=== PATIENT | male | born 1950 | race Caucasian/White ===

== ENCOUNTER 2017-04-04 15:08 | Emergency (ER) | payer OTHER, MEDICARE ==
[2017-04-04 15:21] VITALS: BP 139/82
[2017-04-04] MEDS ORDERED: TETRACAINE HCL 0.5% OPH SOLN 2 ML OS ONE (16:01)
--- NOTE | 2017-04-04 16:02 | ER Document Report ---
HPI - HPI Pain Level: 5 Context: Patient is a 67-year-old male who presents emergency department with right foreign body in his right eye. Patient states that he was working when he is using a drill but that broke and he felt something get into his right eye. Denies any vision changes. Denies any bleeding. Does has a history of artificial lenses from cataracts. Past Medical History - Social History Smoking Status: Former Smoker Family History: Reviewed & Not Pertinent Renal/ Medical History: Denies: Hx Peritoneal Dialysis Vertical Provider Document - HEENT HEENT: Atraumatic, Normal ENT Exam, Normocephalic, PERRLA. negative: Conjuctival Injection Notes: No evidence of positive fluorescein uptake on the surface of the eye. Inversion of the superior eyelid shows evidence of a very small foreign body. Pain reproducible to palpation of the site. - RESPIRATORY O2 Sat by Pulse Oximetry: 97 Course - Re-evaluation Re-evalutation: 04/04/17 16:00 patient is a 67-year-old male who is hemodynamically stable, no acute distress afebrile. Low clinical suspicion for acute closure glaucoma, corneal ulcer. With observation of foreign bodies that I am not able to remove at the bedside using flushing, cotton swab. I discussed the case with on-call processing supervisor Dr. Cari Gallardo who has accepted the patient to be discharged over to his office immediately for foreign body removal. Patient agrees with plan and stable for discharge. - Vital Signs Vital signs: Temp Pulse Resp BP Pulse Ox 99.4 F 92 139/82 H 97 04/04/17 15:18 04/04/17 15:18 04/04/17 15:18 04/04/17 15:18 Discharge - Discharge Clinical Impression: Foreign body in eye Qualifiers: Encounter type: initial encounter Laterality: right Qualified Code(s): T15.91XA - Foreign body on external eye, part unspecified, right eye, initial encounter Condition: Good Disposition: HOME, SELF-CARE Additional Instructions: Please follow-up with Dr. Gallardo address listed below immediately upon discharge from the emergency department [facility] * Address: [address] [place] [id number] * Referrals: CAIR GALLARDO DO [ACTIVE STAFF] - 04/04/17 (ANKUSH)
[2017-04-04] MEDS ORDERED: TETRACAINE HCL 0.5% OPH SOLN 2 ML OD ONE (16:09)
== END 2017-04-04 17:00 | disposition home or self-care (01) ==
LOC: ER 15:08
DX: T15.91XA Foreign body on external eye, part unspecified, right eye, initial encounter (principal); X58.XXXA Exposure to other specified factors, initial encounter; Y93.89 Activity, other specified; Y99.0 Civilian activity done for income or pay; Z96.1 Presence of intraocular lens
CPT/HCPCS: 99283